=== PATIENT | female | born 1955 | race Caucasian/White ===

== ENCOUNTER 2017-10-03 19:58 | Inpatient (IN) ==
--- NOTE | 2017-10-03 20:23 | Emergency Department Note ---
Disposition Clinical Impression: Acute kidney injury Altered mental status Qualifiers: Altered mental status type: unspecified Qualified Code(s): R41.82 - Altered mental status, unspecified Anemia Qualifiers: Anemia type: unspecified type Qualified Code(s): D64.9 - Anemia, unspecified Disposition: Admitted As Inpatient Condition: Good Referrals: NONE,PCP [Primary Care Provider] - Forms: ED Satisfaction Letter Time of Disposition: 21:44 Altered Mental Status HPI - General Chief Complaint: ED Neuro Symptoms/Deficit Stated Complaint: mult complaints Time Seen by Provider: 10/03/17 20:10 Source: patient, family Limitations: no limitations Nursing Notes Reviewed: Yes Vital Signs Reviewed: Yes - History of Present Illness HPI Narrative: Patient presents in the care of her son-in-law for confusion, slurred speech, altered mentation. She takes several medications including prescribed opiates but states that her medications are given to her in a controlled manner. She is doubtful that she took too many. She does complain of nausea and vomiting and diarrhea that started yesterday. She complains of diffuse pain especially in her back due to fibromyalgia and osteoarthritis. No fevers, chest pain, respiratory symptoms - Related Data Home Medications Medication Instructions Recorded Confirmed Atenolol [Tenormin] 06/11/15 Baclofen [Lioresal] 06/11/15 Calcium Carbonate [Calcium] 06/11/15 Lisinopril [Zestril] 06/11/15 Methadone [Methadone] 06/11/15 Multivit-Min/FA/Lycopen/Lutein 06/11/15 [Centrum Silver Tablet] [place] 06/11/15 hydroCHLOROthiazide 06/11/15 [Hydrochlorothiazide] Previous Rx's Medication Instructions Recorded Phenazopyridine HCl [Pyridium] 200 mg PO TID #6 tab 06/11/15 Sulfamethoxazole/Trimeth DS 1 each PO BID #10 tablet 06/11/15 [Bactrim DS] Allergies Allergy/AdvReac Type Severity Reaction Status Date / Time aspirin Allergy Rash Verified 10/03/17 20:03 NSAIDS (Non-Steroidal Allergy Rash Verified 10/03/17 20:03 Anti-Inflamma Limitations: ROS unobtainable due to patients medical condition Constitutional: Reports: as per HPI Eyes: Reports: as per HPI ENT ED: Reports: as per HPI Cardiovascular: Reports: as per HPI Respiratory: Reports: as per HPI Gastrointestinal: Reports: nausea, vomiting, diarrhea Genitourinary: Reports: as per HPI Musculoskeletal: Reports: back pain Neurological: Reports: confusion Psychiatric: Reports: as per HPI Endocrine: Reports: as per HPI Hematological/Lymphatic: Reports: as per HPI Allergic/Immunologic: Reports: as per HPI Past Medical History - Past Medical History Source: patient, obtained from family Medical history: Reports: hypertension, other Psychiatric history: Reports: depression - Social History Smoking Status: Never smoker Smokeless Tobacco Status: No Alcohol use: Reports: none Drug use: Reports: none Physical Exam Pupils 2 mm and symmetric - General Limitations: no limitations General appearance: alert - Head Head exam: atraumatic - Eye Eye exam: Present: normal appearance, PERRL - ENT ENT exam: normal exam, other (Edentulous) - Neck Neck exam: Present: normal inspection - Chest Chest inspection: Present: normal inspection, symmetric chest wall rise - Respiratory Respiratory exam: Present: normal lung sounds bilaterally - Cardiovascular Cardiovascular exam: Present: regular rate, normal rhythm, normal heart sounds - Abdominal Exam Abdominal exam: Present: soft, Non-Tender. Absent: tenderness - Rectal Exam Rectal exam: Present: normal inspection, normal rectal tone, heme (-) stool - Extremities Exam Extremities exam: Present: normal inspection - Neurological Exam Neurological exam: Present: alert, oriented X3, CN II-XII intact, other (Speech slightly slurred but fluent. no facial droop. No focal motor deficit) - Psychiatric Psychiatric exam: Present: normal affect, normal mood - Skin Skin exam: Present: warm, dry, intact Course Course Narrative: The patient presents with altered mentation. Based on her history and physical I favor polypharmacy as the etiology. I will evaluate her for an acute metabolic or infectious process by checking blood work and urinalysis and she will be reevaluated Vital Signs Temperature 98.1 F 10/03/17 20:04 Pulse Rate 94 10/03/17 20:04 Respiratory Rate 18 10/03/17 20:04 Blood Pressure 117/77 10/03/17 20:04 O2 Sat by Pulse Oximetry 94 10/03/17 20:04 Temperature 98.1 F 10/03/17 20:17 Pulse Rate 102 10/03/17 21:02 Respiratory Rate 16 10/03/17 21:02 Blood Pressure 107/78 10/03/17 21:02 O2 Sat by Pulse Oximetry 94 10/03/17 21:02 Oxygen Delivery Oxygen Delivery Room Air Altered Mental Status - Medical Records Medical records reviewed: Yes I reviewed the patient's medical records. hemooglobin acutely lower than previous - Lab Data Lab results reviewed: Yes I reviewed the patient's lab results. Result diagrams: 10/03/17 20:19 10/03/17 20:19 Lab Results 10/03/17 10/03/17 10/03/17 Range/Units 20:19 20:19 20:34 WBC 8.4 (4.3-11.1) K/mcL RBC 4.11 (3.82-4.97) M/mcL Hgb 8.0 L (11.5-15.4) g/dL Hct 28.7 L (35.3-44.9) % MCV 69.8 L (83.0-100.0) fL MCH 19.5 L (28.0-33.3) pg MCHC 27.9 L (31.6-35.5) g/dL RDW 18.5 H (11.5-14.5) % Plt Count 416 H (140-400) K/mcL MPV 9.0 L (9.4-12.4) fL Immature Gran % 0.2 (0-4) % Seg Neutrophils % 73.3 % Lymphocytes % 13.1 % Monocytes % 11.4 % Eosinophils % 1.6 % Basophils % 0.4 % Neutrophils # 6.2 (1.6-8.9) K/mcL Lymphocytes # 1.1 (0.6-4.6) K/mcL Monocytes # 1.0 (0.0-1.3) K/mcL Eosinophils # 0.1 (0.0-0.6) K/mcL Basophils # 0.0 (0.0-0.2) K/mcL Hypochromasia Present A (Not Present) Microcytosis Present A (Not Present) Sodium 136 (136-145) mEq/L Potassium 4.3 (3.5-5.1) mEq/L Chloride 105 (98-107) mEq/L Carbon Dioxide 17 L (23-29) mEq/L BUN 47 H (8-23) mg/dL Creatinine 2.61 H (0.60-1.20) mg/dL Est GFR ( Amer) 22 L (> 60) Est GFR (Non-Af Amer) 18 L (> 60) BUN/Creatinine Ratio 18 (6-26) Glucose 99 (70-105) mg/dL Calculated Osmolality 294 (280-300) Calcium 8.1 L (8.6-10.3) mg/dL Magnesium 2.3 (1.6-2.6) mg/dL Total Bilirubin 0.4 (0.3-1.0) mg/dL AST 19 (13-39) Units/L ALT 14 (7-52) Units/L Alkaline Phosphatase 92 (34-104) Units/L Ammonia 31 (16-53) mcmol/L Troponin I < 0.03 (< 0.04) ng/mL Serum Total Protein 6.1 L (6.4-8.9) g/dL Albumin 3.6 (3.5-5.7) g/dL Globulin 2.5 (2.4-3.5) g/dL Albumin/Globulin Ratio 1.4 (1.1-2.2) TSH 0.961 (0.340-5.600) mcIU/mL Urine Color (Yellow) Urine Clarity (Clear) Urine pH (5.0-8.0) pH Units Ur Specific [place] (1.010-1.025) Urine Protein (Neg-Trace) mg/dL Urine Glucose (UA) (Normal) mg/dL Urine Ketones (Negative) mg/dL Urine Blood (Negative) Urine Nitrite (Negative) Urine Bilirubin (Negative) Urine Urobilinogen (Normal) mg/dL Ur Leukocyte Esterase (Negative) Urine Microscopic RBC (0-3) per hpf Urine Microscopic WBC (0-3) per hpf Ur Squamous Epith Cells (None-Few) per lpf Urine Bacteria (None-Few) per hpf Hyaline Casts WBC Casts (None Seen) per lpf 10/03/17 Range/Units 20:57 WBC (4.3-11.1) K/mcL RBC (3.82-4.97) M/mcL Hgb (11.5-15.4) g/dL Hct (35.3-44.9) % MCV (83.0-100.0) fL MCH (28.0-33.3) pg MCHC (31.6-35.5) g/dL RDW (11.5-14.5) % Plt Count (140-400) K/mcL MPV (9.4-12.4) fL Immature Gran % (0-4) % Seg Neutrophils % % Lymphocytes % % Monocytes % % Eosinophils % % Basophils % % Neutrophils # (1.6-8.9) K/mcL Lymphocytes # (0.6-4.6) K/mcL Monocytes # (0.0-1.3) K/mcL Eosinophils # (0.0-0.6) K/mcL Basophils # (0.0-0.2) K/mcL Hypochromasia (Not Present) Microcytosis (Not Present) Sodium (136-145) mEq/L Potassium (3.5-5.1) mEq/L Chloride (98-107) mEq/L Carbon Dioxide (23-29) mEq/L BUN (8-23) mg/dL Creatinine (0.60-1.20) mg/dL Est GFR ( Amer) (> 60) Est GFR (Non-Af Amer) (> 60) BUN/Creatinine Ratio (6-26) Glucose (70-105) mg/dL Calculated Osmolality (280-300) Calcium (8.6-10.3) mg/dL Magnesium (1.6-2.6) mg/dL Total Bilirubin (0.3-1.0) mg/dL AST (13-39) Units/L ALT (7-52) Units/L Alkaline Phosphatase (34-104) Units/L Ammonia (16-53) mcmol/L Troponin I (< 0.04) ng/mL Serum Total Protein (6.4-8.9) g/dL Albumin (3.5-5.7) g/dL Globulin (2.4-3.5) g/dL Albumin/Globulin Ratio (1.1-2.2) TSH (0.340-5.600) mcIU/mL Urine Color Yellow (Yellow) Urine Clarity Turbid A (Clear) Urine pH 5.5 (5.0-8.0) pH Units Ur Specific [place] 1.018 (1.010-1.025) Urine Protein 30 H (Neg-Trace) mg/dL Urine Glucose (UA) Normal (Normal) mg/dL Urine Ketones Negative (Negative) mg/dL Urine Blood Moderate H (Negative) Urine Nitrite Negative (Negative) Urine Bilirubin Small H (Negative) Urine Urobilinogen Normal (Normal) mg/dL Ur Leukocyte Esterase Moderate H (Negative) Urine Microscopic RBC 50-100 H (0-3) per hpf Urine Microscopic WBC 50-100 H (0-3) per hpf Ur Squamous Epith Cells Many H (None-Few) per lpf Urine Bacteria None Seen (None-Few) per hpf Hyaline Casts Test Not Performed WBC Casts Few H (None Seen) per lpf - EKG Data EKG attestation: Yes I reviewed and interpreted this EKG. EKG results narrative: Sinus tachycardia with PACs rate 102 ID 149 QRS 94 QT/QTC 328/387 TPA Checklist - LKW: 3-4.5 hrs Add. Warnings/Precautions Patient/family understanding: The patient/family members have been counseled and understood the risk, benefit , and alternatives of treatment.
[2017-10-03 20:54] LABS: Basophils % 0.4 %; Eosinophils # 0.1 K/mcL (0.0-0.6); Eosinophils % 1.6 %; Hematocrit 28.7 % (35.3-44.9); Immature Granulocytes % 0.2 % (0-4); Lymphocytes # 1.1 K/mcL (0.6-4.6); Lymphocytes % 13.1 %; Mean Corpuscular HGB Conc 27.9 g/dL (31.6-35.5); Mean Corpuscular Hemoglobin 19.5 pg (28.0-33.3); Mean Corpuscular Volume 69.8 fL (83.0-100.0); Monocytes % 11.4 %; Platelet Count 416 K/mcL (140-400); Red Blood Count 4.11 M/mcL (3.82-4.97); Red Cell Distribution Width 18.5 % (11.5-14.5); Segmented Neutrophils % 73.3 %
[2017-10-03 20:55] LABS: Hypochromasia Present (Not Present); Microcytosis Present (Not Present); Neutrophils # 6.2 K/mcL (1.6-8.9)
[2017-10-03 21:09] LABS: Bilirubin,Urine Small (Negative); Blood,Urine Moderate (Negative); Clarity,Urine Turbid (Clear); Color,Urine Yellow (Yellow); Glucose,Urine (UA) Normal (Normal); Ketones,Urine Negative (Negative); Leukocyte Esterase,Urine Moderate (Negative); Nitrite,Urine Negative (Negative); PH,Urine 5.5 pH Units (5.0-8.0); Protein,Urine 30 mg/dL (Neg-Trace); Specific Gravity,Urine 1.018 (1.010-1.025); Urobilinogen,Urine Normal (Normal)
[2017-10-03 21:09] LABS: Troponin I < 0.03 ng/mL (< 0.04)
[2017-10-03 21:10] LABS: Alanine Aminotransferase 14 Units/L (7-52); Albumin 3.6 g/dL (3.5-5.7); Albumin/Globulin Ratio 1.4 (1.1-2.2); Alkaline Phosphatase 92 Units/L (34-104); Aspartate Amino Transferase 19 Units/L (13-39); BUN/Creatinine Ratio 18 (6-26); Bilirubin,Total 0.4 mg/dL (0.3-1.0); Blood Urea Nitrogen 47 mg/dL (8-23); Calcium 8.1 mg/dL (8.6-10.3); Carbon Dioxide 17 mEq/L (23-29); Chloride 105 mEq/L (98-107); Globulin 2.5 g/dL (2.4-3.5); Glucose 99 mg/dL (70-105); Magnesium 2.3 mg/dL (1.6-2.6); Osmolality,Calculated 294 (280-300); Potassium 4.3 mEq/L (3.5-5.1); Sodium 136 mEq/L (136-145); Total Protein 6.1 g/dL (6.4-8.9); eGFR For African Americans 22 (> 60); eGFR For Non-African Americans 18 (> 60)
[2017-10-03 21:10] LABS: Bacteria,Urine None Seen per hpf (None-Few); RBC,Urine 50-100 per hpf (0-3); Squamous Epithelial Cell,Urine Many per lpf (None-Few); WBC,Urine 50-100 per hpf (0-3)
[2017-10-03 21:23] LABS: Thyroid Stimulating Hormone 0.961 mcIU/mL (0.340-5.600)
[2017-10-03 21:44] LABS: White Blood Cell Casts,Urine Few per lpf (None Seen)
[2017-10-03] MEDS ORDERED: 0.9 % Sodium Chloride 1,000 ML IVC ONE (22:02)
--- NOTE | 2017-10-03 23:14 | Internal Med History&Physical ---
Date of Encounter: 10/04/17 Time of Encounter: 23:07 Internal Medicine - H&P: HPI Chief complaint: Altered mental status Admitted From: Emergency Dept (Altered mental status) Plans for Post Hospital Care: Home History of present illness: Ms. Mac is a 62 year old female with history of hypertension, GERD, chronic pain due to osteoporosis and fibromyalgia who presents for evaluation of altered mental status with slowed speech. The patient has been lethargic for the past couple days and has been dealing with nonbloody diarrhea as well as vomiting since yesterday. No reported fever. Denies abdominal pain. The patient had no focal neurological deficits on exam and was alert and oriented in the ED and apparently. No stroke alert was called. CT head was unremarkable. Laboratory workup showed hemoglobin of 8.0 with previous hemoglobin of 12.5 back in July 2016. Denies any bleeding, melena, hematochezia, hematemesis. FOBT in the ED was negative. Creatinine was noted to be elevated at 2.61. The patient denies any headache, blurry vision, numbness, tingling, dizziness, shortness breath, abdominal pain, urinary symptoms, or neurological symptoms other than the confusion. In the ED the patient was given a liter normal saline. The patient takes multiple sedating medications including gabapentin and morphine but she denies taking more than prescribed. There was family members in the ED earlier but by the time I evaluated the patient on the floor she had no family members. The patient seemed lethargic and was answering most questions appropriately however she seemed lethargic and was slow to answer most questions. She also did not know why she was in the hospital. Past Med Surg Social Fam HX - Past Medical History Medical history: hypertension, other Psychiatric history: depression - Past Surgical History Additional surgical history: right wrist - Social History Smoking Status: Never smoker Smokeless Tobacco Status: No Alcohol use: none Drug use: none Internal Medicine - H&P: Meds Calcium Carb, Citrate/Vit D3 [Calcium + D3 ER Tablet] 1 tab PO DAILY 10/03/17 [ History] Carvedilol [Coreg] 25 mg PO BID 10/03/17 [History] Gabapentin [Neurontin] 600 mg PO HS 10/03/17 [History] Lisinopril [Zestril] 20 mg PO BID 10/03/17 [History] Milnacipran HCl [[place]] 100 mg PO BID 10/03/17 [History] Morphine Sulfate SR (12 HR) [MS Contin] 1 tab PO BID 10/03/17 [History] Omeprazole [PriLOSEC] 40 mg PO DAILY 10/03/17 [History] amLODIPine [Norvasc] 5 mg PO DAILY 10/03/17 [History] 3 Allergy/AdvReac Type Severity Reaction Status Date / Time aspirin Allergy Rash Verified 10/03/17 22:16 NSAIDS (Non-Steroidal Allergy Rash Verified 10/03/17 22:16 Anti-Inflamma All Systems PM: A 10-system review of systems was performed and is negative for pertinent findings except as documented above in the HPI. Review of systems: All systems reviewed are negative except for as mentioned above - Constitutional Vitals: Temp Pulse Resp BP Pulse Ox 98.1 F 102 16 107/78 94 10/03/17 20:17 10/03/17 21:02 10/03/17 21:02 10/03/17 21:02 10/03/17 21:02 Exam: GEN: NAD, lethargic, alert oriented 2. She is able to tell me her name and year and she knows the fact that she is in the hospital although she is not able to which hospital. HEENT: AT, NC, No cyanosis, oral mucosa is moist, No JVD Lymphatics: No lymphadenoapthy Eyes: Extrocular muscles intact, anicteric CVS:RRR. S1, S2, No m/r/g RESP: CTAB ABD: Soft, NT, ND, +BS EXT: No edema, No rashes, 2+ DP NEURO: Nonfocal, CN II-XII intact, No focal motor or sensory deficits Psych: Cooperative, Not anxious or depressed Internal Med - H&P Results - Labs CBC & Chem 7: 10/04/17 05:28 10/04/17 05:28 - Assessment and plan (1) Altered mental status Current Visit: Yes Status: Acute Assessment and plan: The patient answers most questions appropriately however she does show signs of confusion as she is slow to answer. She seems very lethargic. I believe most of the patient's symptoms are likely from polypharmacy in the setting of abnormal kidney function as the patient is on gabapentin and morphine. We will hold sedating drugs. We will monitor for now. TSH was normal. Ammonia level was normal. CT head was negative. No signs of infection. Qualifiers: Altered mental status type: unspecified Qualified Code(s): R41.82 - Altered mental status, unspecified (2) Acute kidney injury Current Visit: Yes Status: Acute Assessment and plan: We will avoid nephrotoxins. We will hydrate the patient. Check labs in the morning. (3) Nausea & vomiting Current Visit: Yes Status: Acute Assessment and plan: Possibly viral gastroenteritis. This is associated with diarrhea. We will check GI panel. Check lipase. Check CT abdomen and pelvis. LFTs are normal. Symptomatic treatment for now. Qualifiers: Vomiting type: unspecified Vomiting Intractability: unspecified Qualified Code(s): R11.2 - Nausea with vomiting, unspecified (4) Diarrhea Current Visit: Yes Status: Acute Assessment and plan: As above. Qualifiers: Diarrhea type: unspecified type Qualified Code(s): R19.7 - Diarrhea, unspecified (5) Anemia Current Visit: Yes Status: Acute Assessment and plan: No clear signs of bleed. FOBT was negative. We will check iron studies. No history of scopes. Last GI to evaluate. No need to transfuse for now. Qualifiers: Anemia type: unspecified type Qualified Code(s): D64.9 - Anemia, unspecified (6) HTN (hypertension) Current Visit: Yes Status: Acute Assessment and plan: Patient was somewhat hypotensive in the 80s systolically in the ED. This improved with IV fluids. Will hold antihypertensives for now. Qualifiers: Hypertension type: essential hypertension Qualified Code(s): I10 - Essential (primary) hypertension (7) DVT prophylaxis Current Visit: Yes Status: Acute Assessment and plan: SCDs - Time Spent With Patient Total time spent is greater than 50% in coordination of care (as documented) at patient's floor/unit and/or counseling patient:
[2017-10-03] MEDS ORDERED: Naloxone 0.4 MG/ML INJ IVP PRN ×2 (23:20)
[2017-10-03] MEDS ORDERED: Acetaminophen 325 MG TABLET PO PRN (23:20)
[2017-10-03 23:25] LABS: Lipase 6 Units/L (11-82)
[2017-10-04 00:06] LABS: Ferritin 15 ng/mL (10-120); Iron < 10 mcg/dL (50-170); Transferrin 370 mg/dL (203-362)
[2017-10-04 00:49] LABS: Folate > 22.3 ng/mL (3.0-16.0); Vitamin B12 122 pg/mL (250-1100)
[2017-10-04] MEDS: 0.9 % Sodium Chloride 1,000 ML IVC SCH ×4 (01:55→21:39)
[2017-10-04 05:47] LABS: Basophils % 0.3 %; Eosinophils % 2.6 %; Immature Granulocytes % 0.2 % (0-4); Mean Corpuscular Hemoglobin 19.3 pg (28.0-33.3); Mean Platelet Volume 9.3 fL (9.4-12.4)
[2017-10-04 05:49] LABS: Eosinophils # 0.2 K/mcL (0.0-0.6); Hematocrit 27.6 % (35.3-44.9); Hemoglobin 7.6 g/dL (11.5-15.4); Lymphocytes # 1.6 K/mcL (0.6-4.6); Lymphocytes % 26.5 %; Mean Corpuscular HGB Conc 27.5 g/dL (31.6-35.5); Mean Corpuscular Volume 70.2 fL (83.0-100.0); Monocytes # 0.8 K/mcL (0.0-1.3); Monocytes % 13.5 %; Neutrophils # 3.5 K/mcL (1.6-8.9); Platelet Count 392 K/mcL (140-400); Red Blood Count 3.93 M/mcL (3.82-4.97); Red Cell Distribution Width 18.6 % (11.5-14.5); Segmented Neutrophils % 56.9 %
[2017-10-04 06:01] LABS: Calcium 7.8 mg/dL (8.6-10.3); Magnesium 2.4 mg/dL (1.6-2.6); Potassium 4.1 mEq/L (3.5-5.1)
[2017-10-04 06:22] LABS: Anisocytosis 1+ (Not Present); Hypochromasia Present (Not Present); Large Platelets Present (Not Present); Microcytosis Present (Not Present); Platelet Estimate Normal (Normal)
--- NOTE | 2017-10-04 07:10 | Event Note ---
Date of Encounter: 10/04/17 Time of Encounter: 07:07 CT abd/pelvis showed possible mechanical SBO. I spoke to Dr. Cooper about this. I did not put in a consult. I explained to Dr. Cooper that the patient has been having nausea and vomiting for a couple of days but none here and has had loose stools the last two days. I explained to him that the patient's abdominal exam is very benign and is nontender, nondistended, and + bowel sounds. He advised that we watch her clinically and advance her diet as tolerated. He thinks that sometimes those reads are done by radiology based on some bowel pattern seen in a gastroenteritis whether viral or bacterial. He advised that we continue IV fluids and to check stool panel which I have done on admission. He stated that the surgical team is available for consult if the patient worsens clinically.
[2017-10-04] MEDS: Cholecalciferol (D-3) 1,000 UNIT TABLET PO SCH (08:24)
[2017-10-04] MEDS ORDERED: CALCIUM PO SCH (09:00)
[2017-10-04] MEDS ORDERED: D3 PO SCH (09:00)
--- NOTE | 2017-10-04 11:15 | Internal Med Progress Note ---
Date of Encounter: 10/04/17 Time of Encounter: 11:00 - Assessment and plan (1) Altered mental status Current Visit: Yes Status: Acute Assessment and plan: The patient answers most questions appropriately however she does show signs of confusion as she is slow to answer. She seems very lethargic. I believe most of the patient's symptoms are likely from polypharmacy in the setting of abnormal kidney function as the patient is on gabapentin and morphine. We will hold sedating drugs. We will monitor for now. TSH was normal. Ammonia level was normal. CT head was negative. No signs of infection. Qualifiers: Altered mental status type: unspecified Qualified Code(s): R41.82 - Altered mental status, unspecified (2) Nausea & vomiting Current Visit: Yes Status: Acute Assessment and plan: Possibly viral gastroenteritis. This is associated with diarrhea. We will check GI panel. Check lipase. Check CT abdomen and pelvis. LFTs are normal. Symptomatic treatment for now. Qualifiers: Vomiting type: unspecified Vomiting Intractability: unspecified Qualified Code(s): R11.2 - Nausea with vomiting, unspecified (3) Anemia Current Visit: Yes Status: Acute Assessment and plan: No clear signs of bleed. FOBT was negative. We will check iron studies. No history of scopes. Last GI to evaluate. No need to transfuse for now. Qualifiers: Anemia type: unspecified type Qualified Code(s): D64.9 - Anemia, unspecified (4) Acute kidney injury Current Visit: Yes Status: Acute Assessment and plan: We will avoid nephrotoxins. We will hydrate the patient. Check labs in the morning. (5) HTN (hypertension) Current Visit: Yes Status: Acute Assessment and plan: Patient was somewhat hypotensive in the 80s systolically in the ED. This improved with IV fluids. Will hold antihypertensives for now. Qualifiers: Hypertension type: essential hypertension Qualified Code(s): I10 - Essential (primary) hypertension (6) Diarrhea Current Visit: Yes Status: Acute Assessment and plan: As above. Qualifiers: Diarrhea type: unspecified type Qualified Code(s): R19.7 - Diarrhea, unspecified (7) DVT prophylaxis Current Visit: Yes Status: Acute Assessment and plan: SCDs - Time Spent With Patient Total time spent is greater than 50% in coordination of care (as documented) at patient's floor/unit and/or counseling patient: - Subjective Interval history: No acute events overnight - Constitutional Vitals: Temp Pulse Resp BP Pulse Ox 98.8 F 98 18 101/66 91 10/04/17 09:30 10/04/17 09:30 10/04/17 09:30 10/04/17 09:30 10/04/17 09:30 - Head Head exam: Present: atraumatic, normocephalic - Eye Eye exam: Present: PERRL, conjuntiva pink, sclera anicteric Pupils: Present: PERRL - Neck Neck exam general surgery: Present: supple, trachea midline. Absent: lymphadenopathy - Respiratory Respiratory exam: Present: CTAB. Absent: accessory muscle use, rales, rhonchi, wheezes - Cardiovascular Cardiovascular exam: Present: RRR, +S1, +S2. Absent: diastolic murmur, gallop, rubs, systolic murmur - GI/Abdominal GI/Abdominal exam: Present: normal bowel sounds, soft, no peritoneal signs. Absent: distended, tenderness - Extremities Exam Extremities exam: Present: warm, radial pulses palpable and symmetrical. Absent : calf tenderness, cyanotic, pedal edema - Neurological Exam Neurological exam: Present: CN II-XII intact, oriented X3, no focal deficits. Absent: pronater drift, facial droop, speech deficit - Skin Skin exam: Present: dry, intact Internal Medicine: Result - Labs CBC & Chem 7: 10/04/17 05:28 10/04/17 05:28 Labs: Short CBC 10/04/17 Range/Units 05:28 WBC 6.2 (4.3-11.1) K/mcL Hgb 7.6 L (11.5-15.4) g/dL Hct 27.6 L (35.3-44.9) % Plt Count 392 (140-400) K/mcL Neutrophils # 3.5 (1.6-8.9) K/mcL BMP 10/04/17 05:28 Sodium 139 Potassium 4.1 Chloride 109 H Carbon Dioxide 19 L BUN 45 H Creatinine 2.60 H Glucose 94 Calcium 7.8 L - Impressions Impressions Abdomen/Pelvis CT 10/04/17 23:11 IMPRESSION: 1. Prior gastric bypass surgery. 2. No acute abdominal/pelvic process. D/ / Edwin Dennis MD / Edwin Dennis MD Interpreting Provider: Edwin Dennis MD Consult Discharge Plan - Plan Referrals: NONE,PCP [Primary Care Provider] -
--- NOTE | 2017-10-04 11:23 | Gastroenterology Consult Note ---
<Mario Garrison - Last Filed: 10/04/17 11:17> Date of Encounter: 10/04/17 Time of Encounter: 10:05 - Assessment and plan (1) Anemia Current Visit: Yes Status: Acute Assessment and plan: Hgb on admission was 8.4 with MCV 69.8 and today Hgb 7.6 with MCV 70.2. Iron < 10 and ferritin 15. Continue to monitor CBC and transfuse PRBC as needed. Plan for EGD and colonoscopy tomorrow. Clear liquid diet today, no red or purple. NPO at midnight. If unable tolerate NuLytely please use MiraLAX prep. If not clear by 6 AM, give 2 tap water enemas. Give one dose IV iron today and repeat in 2 weeks. Qualifiers: Anemia type: unspecified type Qualified Code(s): D64.9 - Anemia, unspecified (2) Nausea, vomiting and diarrhea Current Visit: Yes Status: Acute Assessment and plan: Likely viral gastroenteritis. GI panel has been ordered. CT A/P with prior gastric bypass surgery, otherwise no acute process. Symptomatic treatment. Will be completing EGD and colonoscopy due to her anemia. - Time Spent With Patient Total time spent is greater than 50% in coordination of care (as documented) at patient's floor/unit and/or counseling patient: GI History of Present Illness - Data of Consult Patient: new to practice Consult date: 10/04/17 Requesting Physician: Torres Maynard - Consult Narrative Reason for consult: Anemia History of present illness: Ms. Mac is a 62 year old female with PMHx of HTN, GERD, chronic pain due to osteoporosis and fibromyalgia presented for evaluation of altered mental status with slowed speech. The patient has been lethargic for the past couple days and has been dealing with nonbloody diarrhea as well as vomiting since the day prior to admission. She denies fever, chills, headache, chest pain, shortness of breath, abdominal pain, melena, hematochezia, hematemesis. FOBT in the ED was negative. We were consulted to evaluate her anemia. Hgb on admission was 8.4 with MCV 69.8 and today Hgb 7.6 with MCV 70.2. Iron <10 and ferritin 15. GI panel has been ordered for her diarrhea. CT A/P with prior gastric bypass surgery, otherwise no acute process. Procedures: Colonoscopy at [facility], pt unsure when: Normal per patient report. NSAIDs: None Anticoagulation: None Past Med Surg Social Fam HX - Past Medical History Medical history: hypertension, other Psychiatric history: depression - Past Surgical History Additional surgical history: right wrist - Social History Smoking Status: Never smoker Smokeless Tobacco Status: No Alcohol use: none Drug use: none - Gastrointestinal Gastrointestinal: Present: as per HPI - Constitutional Constitutional: as per HPI - EENT Eyes: as per HPI Ears: Present: as per HPI Nose, mouth and throat: Present: as per HPI - Cardiovascular Cardiovascular ROS: Present: as per HPI - Respiratory Respiratory IM: Present: as per HPI - Genitourinary Genitourinary: Absent: change in color, Urinary frequency - Neurological ROS Neurological GI: Present: as per HPI - Hematologic/Lymphatic Hematologic/Lymphatic pediatric: Present: as per HPI - Musculoskeletal Musculoskeletal ROS GI: Present: as per HPI - Integumentary Integumentary GI: Present: as per HPI - Psychiatric ROS Psychiatric GI: Present: as per HPI - Endocrine Endocrine IM: Present: as per HPI - Constitutional Vitals: Temp Pulse Resp BP Pulse Ox 98.8 F 98 18 101/66 91 10/04/17 09:30 10/04/17 09:30 10/04/17 09:30 10/04/17 09:30 10/04/17 09:30 General appearance: Present: cooperative, A&O X 3, no acute distress, answers questions appropriately - Head Head exam: Present: atraumatic, normocephalic - Eye Eye exam: Present: normal appearance, sclera anicteric - ENT ENT exam: Present: mucous membranes dry - Neck Neck exam general surgery: Present: normal inspection, trachea midline - Respiratory Respiratory exam: Present: CTAB. Absent: rales, rhonchi - Cardiovascular Cardiovascular exam: Present: RRR, +S1, +S2 - GI/Abdominal GI/Abdominal exam: Present: soft, no peritoneal signs. Absent: distended, firm , guarding, tenderness - Rectal Rectal exam: Present: deferred - Extremities Exam Extremities exam: Present: warm - Neurological Exam Neurological exam: Present: no focal deficits - Psychiatric Psychiatric exam: Present: normal affect, normal mood - Skin Skin exam: Present: dry, intact, normal color, warm Results - Labs CBC & Chem 7: 10/04/17 05:28 10/04/17 05:28 Labs: Last Result Calcium 7.8 mg/dL (8.6-10.3) L 10/04/17 05:28 Iron < 10 mcg/dL (50-170) L 10/03/17 20:19 % Saturation TNP 10/03/17 20:19 Transferrin 370 mg/dL (203-362) H 10/03/17 20:19 Ferritin 15 ng/mL (10-120) 10/03/17 20:19 Troponin I < 0.03 ng/mL (< 0.04) 10/03/17 20:19 Vitamin B12 122 pg/mL (250-1100) L 10/03/17 23:16 Folate > 22.3 ng/mL (3.0-16.0) H 10/03/17 23:16 Entire Visit Hgb 7.6 g/dL (11.5-15.4) L 10/04/17 05:28 Hct 27.6 % (35.3-44.9) L 10/04/17 05:28 Ferritin 15 ng/mL (10-120) 10/03/17 20:19 Total Bilirubin 0.4 mg/dL (0.3-1.0) 10/03/17 20:19 AST 19 Units/L (13-39) 10/03/17 20:19 ALT 14 Units/L (7-52) 10/03/17 20:19 Ammonia 31 mcmol/L (16-53) 10/03/17 20:34 Lipase 6 Units/L (11-82) L 10/03/17 20:19 Folate > 22.3 ng/mL (3.0-16.0) H 10/03/17 23:16 - Impressions Impressions Abdomen/Pelvis CT 10/04/17 23:11 IMPRESSION: 1. Prior gastric bypass surgery. 2. No acute abdominal/pelvic process. D/ / Edwin Dennis MD / Edwin Dennis MD Interpreting Provider: Edwin Dennis MD Consult Discharge Plan - Plan Referrals: NONE,PCP [Primary Care Provider] - <Miladis Weldon - Last Filed: 10/04/17 17:13> Date of Encounter: 10/04/17 Time of Encounter: 14:00 - Time Spent With Patient Total time spent is greater than 50% in coordination of care (as documented) at patient's floor/unit and/or counseling patient: GI History of Present Illness - Data of Consult Requesting Physician: Torres Maynard - Consult Narrative History of present illness: Ms. Mac is a 62 year old female - Constitutional Vitals: Temp Pulse Resp BP Pulse Ox 98.7 F 87 18 120/7 94 10/04/17 15:37 10/04/17 15:37 10/04/17 15:37 10/04/17 15:37 10/04/17 15:37 Results - Labs CBC & Chem 7: 10/04/17 05:28 10/04/17 05:28 Labs: Last Result Calcium 7.8 mg/dL (8.6-10.3) L 10/04/17 05:28 Iron < 10 mcg/dL (50-170) L 10/03/17 20:19 % Saturation TNP 10/03/17 20:19 Transferrin 370 mg/dL (203-362) H 10/03/17 20:19 Ferritin 15 ng/mL (10-120) 10/03/17 20:19 Troponin I < 0.03 ng/mL (< 0.04) 10/03/17 20:19 Vitamin B12 122 pg/mL (250-1100) L 10/03/17 23:16 Folate > 22.3 ng/mL (3.0-16.0) H 10/03/17 23:16 Entire Visit Hgb 7.6 g/dL (11.5-15.4) L 10/04/17 05:28 Hct 27.6 % (35.3-44.9) L 10/04/17 05:28 Ferritin 15 ng/mL (10-120) 10/03/17 20:19 Total Bilirubin 0.4 mg/dL (0.3-1.0) 10/03/17 20:19 AST 19 Units/L (13-39) 10/03/17 20:19 ALT 14 Units/L (7-52) 10/03/17 20:19 Ammonia 31 mcmol/L (16-53) 10/03/17 20:34 Lipase 6 Units/L (11-82) L 10/03/17 20:19 Folate > 22.3 ng/mL (3.0-16.0) H 10/03/17 23:16 - Impressions Impressions Abdomen/Pelvis CT 10/04/17 23:11 IMPRESSION: 1. Prior gastric bypass surgery. 2. No acute abdominal/pelvic process. D/ / Edwin Dennis MD / Edwin Dennis MD Interpreting Provider: Edwin Dennis MD - Attending Attestation I have personally performed a face to face evaluation on this patient. I have reviewed and agree with the care plan. History and Exam by me shows: Patient seen denies any abdominal pain on examination abdomen is soft and benign. Assessment: Patient is severe iron deficiency anemia. Recommendation: EGD and colonoscopy in the morning to rule out GI causes for iron deficiency anemia
[2017-10-04] MEDS ORDERED: Iron Sucrose Complex 400 MG in 0.9 % Sodium Chloride 250 ML IVPB ONE (11:29)
[2017-10-04] MEDS ORDERED: SODIUM CHLORIDE/NAHCO3/KCL/PEG 4,000 ML SOLN.RECON PO ONE (17:00)
[2017-10-05] MEDS ORDERED: Lidocaine -MPF 2% 2 ML VIAL ONE (06:10)
[2017-10-05] MEDS ORDERED: Propofol 500 MG/50 ML INFUS..BTL ONE (06:10)
[2017-10-05] MEDS ORDERED: *HR* Propofol 200 MG/20 ML VIAL IVP ONE (06:10)
[2017-10-05] MEDS: 0.9 % Sodium Chloride 1,000 ML IVC SCH (06:20)
--- NOTE | 2017-10-05 07:08 | Anesthesia Evaluation PreOp ---
Date of Encounter: 10/05/17 Time of Encounter: 07:05 - Past History Planned Operation: EGD/C-scope Cardiac History: HTN, Other (anemia) Pulmonary History: Denies Any Significant HX Other Medical History: Other (fibromyalgia, chronic pain, N/V, diarrhea) Anesthesia History: No Prior Anesthetic Complications, Past Anesthesia (right wrist) Alcohol Use: none Drug use: none Medications and Allergies Calcium Carb, Citrate/Vit D3 [Calcium + D3 ER Tablet] 1 tab PO DAILY 10/03/17 [ History] Carvedilol [Coreg] 25 mg PO BID 10/03/17 [History] Gabapentin [Neurontin] 600 mg PO HS 10/03/17 [History] Lisinopril [Zestril] 20 mg PO BID 10/03/17 [History] Milnacipran HCl [Savella] 100 mg PO BID 10/03/17 [History] Morphine Sulfate SR (12 HR) [MS Contin] 1 tab PO BID 10/03/17 [History] Omeprazole [PriLOSEC] 40 mg PO DAILY 10/03/17 [History] amLODIPine [Norvasc] 5 mg PO DAILY 10/03/17 [History] 3 Allergy/AdvReac Type Severity Reaction Status Date / Time aspirin Allergy Rash Verified 10/03/17 22:16 NSAIDS (Non-Steroidal Allergy Rash Verified 10/03/17 22:16 Anti-Inflamma - Meds/Allergy Pre-op Review Medications Reviewed: Yes Allergies Reviewed: Yes Beta Blockers on Current Med List: No Anesthesia Results - Labs 10/04/17 05:28 10/04/17 05:28 Anesthesia Exam Selected Entries 10/05/17 03:57 Temperature 98.6 F Pulse Rate 89 Respiratory Rate 15 Blood Pressure 172/97 O2 Sat by Pulse Oximetry 95 Oxygen Delivery Method Room Air Weight: 82kg NPO (# of Hours): 8 - HEENT Pupil (Motor): EOMI Mallampati: II Teeth: Edentulous Oral Opening: Greater than 3 - REHABILITATION SERVICES COUNSELOR LOC: Oriented REHABILITATION SERVICES COUNSELOR Motor: Normal RUE, Normal LUE, Normal RLE, Normal LLE, Normal Face REHABILITATION SERVICES COUNSELOR Sensory: Normal: RUE, LUE, RLE, LLE, Face - Cardiac Rhythm: Regular Murmur: None - Pulmonary Breath Sounds: bilateral Clear Respiratory Effort: Symmetrical Anesthesia Assess/Plan ASA Score: 2 Modified Courtney Scale for Level of Consciousness: Cooperative, oriented, and tranquil Anesthetic Plan: MAC Monitoring Plan: Standard Monitors Recovery Plan: Other (agrees to MAC)
[2017-10-05] MEDS ORDERED: *HR* FentaNYL (PF) 100 MCG/2 ML VIAL ONE (07:15)
[2017-10-05] MEDS ORDERED: *HR* Midazolam HCl 5 MG/5 ML VIAL IVP ONE (07:15)
[2017-10-05] MEDS ORDERED: 0.9 % Sodium Chloride 1,000 ML IVC SCH (08:00)
--- NOTE | 2017-10-05 08:40 | Anesthesia Evaluation Post Op ---
Date of Encounter: 10/05/17 Time of Encounter: 08:38 - Vital Signs Vital Signs: HR 80 BP 100/57 SpO2 97% on RA RR 16 - Lungs Lungs: Clear Ascult./Percussion - Airway Airway: Non-obstructed - Cardiovascular Regular Rate - Mental Status Mental Status: Alert & Oriented, Answers Appropriately - Pain Pain Scale: 0 Pain Scale used: Numeric (1 - 10) - Nausea Vomiting Nausea Vomiting: Not Present - Hydration Hydration: NPO, Has not voided - Discharge PostOp Status: Transfer Patient to floor
[2017-10-05] MEDS: Cholecalciferol (D-3) 1,000 UNIT TABLET PO SCH (08:58)
--- NOTE | 2017-10-05 09:38 | Electrocardiograph Report ---
[place] [id number] Test Date: 2017-10-03 Pat Name: J oAnn Mac Department: 103 Room: 2A42 Gender: F Power Plant Operator: [id number] : [id number] Requested By: Oni Connolly Order Number: [id number] Reading MD: Darrius Angulo Measurements Intervals [place] Rate: 102 P: 22 UT: 149 QRS: 17 QRSD: 94 T: 17 QT: 328 QTc: 387 Interpretive Statements SINUS TACHYCARDIA WITH OCCASIONAL SUPRAVENTRICULAR PREMATURE COMPLEXES BASELINE ARTIFACT Electronically Signed On 10-05-2017 9:36:20 EDT by Darrius Angulo
[2017-10-05 10:07] LABS: Basophils % 0.7 %; Red Cell Distribution Width 18.6 % (11.5-14.5)
[2017-10-05 10:08] LABS: Eosinophils # 0.1 K/mcL (0.0-0.6); Eosinophils % 2.1 %; Hematocrit 25.6 % (35.3-44.9); Hemoglobin 7.2 g/dL (11.5-15.4); Immature Granulocytes % 0.4 % (0-4); Lymphocytes # 0.8 K/mcL (0.6-4.6); Mean Corpuscular HGB Conc 28.1 g/dL (31.6-35.5); Mean Corpuscular Hemoglobin 19.5 pg (28.0-33.3); Mean Corpuscular Volume 69.2 fL (83.0-100.0); Mean Platelet Volume 9.1 fL (9.4-12.4); Monocytes # 0.5 K/mcL (0.0-1.3); Monocytes % 16.7 %; Neutrophils # 1.5 K/mcL (1.6-8.9); Platelet Count 333 K/mcL (140-400); Segmented Neutrophils % 53.1 %
[2017-10-05 10:14] LABS: BUN/Creatinine Ratio 15 (6-26); Blood Urea Nitrogen 12 mg/dL (8-23); Calcium 7.8 mg/dL (8.6-10.3); Carbon Dioxide 22 mEq/L (23-29); Chloride 113 mEq/L (98-107); Glucose 100 mg/dL (70-105); Osmolality,Calculated 290 (280-300); Potassium 3.8 mEq/L (3.5-5.1); Sodium 140 mEq/L (136-145); eGFR For African Americans > 60 (> 60); eGFR For Non-African Americans > 60 (> 60)
--- NOTE | 2017-10-05 10:59 | Discharge Summary ---
- NOTES TO OUTPATIENT PROVIDER Notes to Outpatient Provider: Follow up with PCP. Will need to reduce dose of gabapentin and pain meds. recommend holding off on resuming fibromyalgia meds- gabaentin, morphine sulfate and milnacipran till she sees her PCP Orders not resulted at time of discharge: Pending orders 10/05/17 08:29 Surgical Pathology [PTH] Routine Date of Encounter: 10/05/17 Time of Encounter: 11:00 - Discharge Diagnosis (1) Altered mental status Priority: Primary Status: Acute Assessment and Plan: 62 year old female with history of hypertension, GERD, chronic pain due to osteoporosis and fibromyalgia who presents for evaluation of altered mental status with slowed speech. The patient has been lethargic for the past couple days and has been dealing with nonbloody diarrhea as well as vomiting since yesterday. It was noted she is taking morphine sulfate, gabapentin and milnacipran for fibromyalgia. Her AMS was deemed likely 2/2 to polypharmacy and these meds were held. She made a recovery with her mental status returning to baseline. She was counseled to stop taking these meds until she follows up with her PCP for dose adjustment. She also noted to be anemic and an EGD and colonoscopy were completed showing no acute findings Qualifiers: Altered mental status type: unspecified Qualified Code(s): R41.82 - Altered mental status, unspecified (2) Nausea & vomiting Priority: Secondary Status: Acute Qualifiers: Vomiting type: unspecified Vomiting Intractability: unspecified Qualified Code(s): R11.2 - Nausea with vomiting, unspecified (3) Anemia Priority: Secondary Status: Acute Qualifiers: Anemia type: unspecified type Qualified Code(s): D64.9 - Anemia, unspecified (4) Acute kidney injury Priority: Secondary Status: Acute (5) HTN (hypertension) Priority: Secondary Status: Acute Qualifiers: Hypertension type: essential hypertension Qualified Code(s): I10 - Essential (primary) hypertension (6) Diarrhea Priority: Secondary Status: Acute Qualifiers: Diarrhea type: unspecified type Qualified Code(s): R19.7 - Diarrhea, unspecified (7) DVT prophylaxis Priority: Secondary Status: Acute Hospital course: Ms. Mac is a 62 year old female - Time Spent with Patient Total time spent providing and/or coordinating discharge services: - Discharge Medications Home Medications: Calcium Carb, Citrate/Vit D3 [Calcium + D3 ER Tablet] 1 tab PO DAILY 10/03/17 [ History] Carvedilol [Coreg] 25 mg PO BID 10/03/17 [History] Gabapentin [Neurontin] 600 mg PO HS 10/03/17 [History] Lisinopril [Zestril] 20 mg PO BID 10/03/17 [History] Milnacipran HCl [Savella] 100 mg PO BID 10/03/17 [History] Morphine Sulfate SR (12 HR) [MS Contin] 1 tab PO BID 10/03/17 [History] Omeprazole [PriLOSEC] 40 mg PO DAILY 10/03/17 [History] amLODIPine [Norvasc] 5 mg PO DAILY 10/03/17 [History] Allergies/Adverse Reactions: 3 Allergy/AdvReac Type Severity Reaction Status Date / Time aspirin Allergy Rash Verified 10/03/17 22:16 NSAIDS (Non-Steroidal Allergy Rash Verified 10/03/17 22:16 Anti-Inflamma Date of admission: 10/03/17 23:20 Primary care physician: PCP NONE - Constitutional Vitals: Temp Pulse Resp BP Pulse Ox 98.6 F 83 18 160/96 92 10/05/17 07:47 10/05/17 07:47 10/05/17 07:47 10/05/17 07:47 10/05/17 07:47 - Patient Status Disposition: Home, Self-Care Condition: Good - Discharge Instructions Follow Up With: Silas Stinson MD [Partnered Physician] - 10/12/17 10:45 am (Please follow up as schedule... and please call 24 hours if canceling the appt. Arrive early for paper works needed to be done...) NONE,PCP [Primary Care Provider] - - VTE Documentation of Mechanical Device: Intermittent pneumatic compression device
[2017-10-05 11:20] VITALS: BP 158/104
== END 2017-10-05 13:23 | disposition home or self-care (01) | DRG 684 ==
LOC: 2ANU 19:58 → EMEROO 19:58 → 2ANU 23:10
PROVIDERS: ADMIT Internal Medicine; ATTEND Internal Medicine
PROC: ENDOEBX (2017-10-05 08:00)